=== PATIENT | male | born 1955 | race Caucasian/White ===

== ENCOUNTER 2021-03-09 11:00 | Outpatient (RCR) | payer MEDICARE | END 2021-03-12 | disposition home or self-care (01) | PROVIDERS: ATTEND Internal Medicine | DX: R53.1 Weakness (principal); I10 Essential (primary) hypertension; E11.9 Type 2 diabetes mellitus without complications; R26.89 Other abnormalities of gait and mobility; Z86.73 Personal history of transient ischemic attack (TIA), and cerebral infarction without residual deficits ==

== ENCOUNTER 2021-07-17 09:54 | Outpatient (RCR) | payer MEDICARE | END 2021-07-23 | disposition home or self-care (01) | PROVIDERS: ATTEND Internal Medicine | DX: I69.954 Hemiplegia and hemiparesis following unspecified cerebrovascular disease affecting left non-dominant side (principal); R26.89 Other abnormalities of gait and mobility; E11.36 Type 2 diabetes mellitus with diabetic cataract; E11.39 Type 2 diabetes mellitus with other diabetic ophthalmic complication; E11.621 Type 2 diabetes mellitus with foot ulcer; H42 Glaucoma in diseases classified elsewhere; L97.529 Non-pressure chronic ulcer of other part of left foot with unspecified severity ==

== ENCOUNTER → 2021-08-23 | Outpatient (RCR) | payer MEDICARE | END | disposition home or self-care (01) | PROVIDERS: ATTEND Internal Medicine | DX: I69.954 Hemiplegia and hemiparesis following unspecified cerebrovascular disease affecting left non-dominant side (principal); R53.81 Other malaise; E11.9 Type 2 diabetes mellitus without complications ==

== ENCOUNTER 2021-09-10 08:32 | Outpatient (RCR) | payer MEDICARE | END 2021-09-10 10:14 | disposition home or self-care (01) | PROVIDERS: ATTEND Internal Medicine | DX: I69.954 Hemiplegia and hemiparesis following unspecified cerebrovascular disease affecting left non-dominant side (principal); R53.81 Other malaise; E11.9 Type 2 diabetes mellitus without complications ==

== ENCOUNTER 2022-07-17 05:37 | Outpatient (CLI) | payer MEDICARE ==
[~2022-07-17] VITALS: Ht 167.6 cm; Wt 106.1 kg
== END 2022-07-17 09:55 | disposition home or self-care (01) ==
LOC: PREOP 05:37
PROVIDERS: ATTEND Internal Medicine
DX: Z01.818 Encounter for other preprocedural examination (principal)

== ENCOUNTER 2022-07-26 07:25 | Day surgery (SDC) | payer MEDICARE ==
--- NOTE | 2022-07-16 06:46 | HISTORY AND PHYSICAL ---
COLONOSCOPY HISTORY AND PHYSICAL HISTORY OF PRESENT ILLNESS: The patient is a 67-year-old white male who was seen for followup of uncontrolled type 2 diabetes, previous CVA and hypertension. It has been over 10 years since his last colonoscopy. He is deemed to be of average risk. He is not aware of any family history for colon cancer or polyps. He denies bright red blood per rectum or melena. His blood sugar control had not been good, but with increasing his Levemir from 30 units daily to 30 units b.i.d., he has not had any blood sugars over 200 and he has not had any hypoglycemia. We reviewed his blood work and while his A1c was higher at 10.1, he had only increased his insulin a week ago when his fasting sugar was significantly lower at 136, down from 346. He has not had any new neurologic symptoms and reports no falls. PHYSICAL EXAMINATION: GENERAL: Reveals a white male who appeared to be in no acute distress. VITAL SIGNS: Weight 234 pounds. Blood pressure 150/94 when he first came in and at the end of the interview 134/86. CHEST: Clear. CARDIOVASCULAR: Reveals regular rate and rhythm without murmur, S3, or S4. ABDOMEN: Soft, supple without mass, organomegaly, or tenderness. EXTREMITIES: Revealed no cyanosis, clubbing or edema. ASSESSMENT AND PLAN: 1. Hypertension, under reasonable control. 2. Type 2 diabetes controlled and improving. We will have him return in 3 months with a BMP, A1c, lipid, and screening PSA. 3. Discussed rationale for screening colonoscopy. Prep instructions were given and questions were answered. Job ID: [id number] DocumentID: [id number] Dictated Date: 07/01/2022 16:26:54 Avp Date: 07/01/2022 16:43:00 Dictated By: SELENA LEY MD
[~2022-07-26] VITALS: Ht 167 cm; Wt 106.1 kg
[2022-07-26] MEDS ORDERED: LACTATED RINGERS 1,000 ML IV STA (07:27)
[2022-07-26] MEDS ORDERED: HURRICAINE EXT TUBE (BENZOCAINE) XX PRN (07:30)
[2022-07-26] MEDS ORDERED: ASPI-999 PO (07:35)
[2022-07-26] MEDS ORDERED: COLE1TAB PO (07:35)
[2022-07-26] MEDS ORDERED: LISI20TA26 PO (07:35)
[2022-07-26] MEDS ORDERED: TIRZ2.5P SQ (07:35)
[2022-07-26] MEDS ORDERED: CALC-250 PO (07:35)
[2022-07-26] MEDS ORDERED: OMEP40CA6 PO (07:35)
[2022-07-26] MEDS ORDERED: MULT-593 PO (07:35)
[2022-07-26] MEDS ORDERED: GABA-486 PO (07:35)
[2022-07-26] MEDS ORDERED: ATOR20TA66 PO (07:35)
[2022-07-26] MEDS ORDERED: ESCI-2 PO (07:35)
[2022-07-26] MEDS ORDERED: LEVE10006 PO (07:35)
[2022-07-26 07:49] VITALS: BP 176/86
--- NOTE | 2022-07-26 07:57 | Pre-Op Note & Conscious Sedat ---
Pre-Operative Progress Note Date H&P Reviewed: Jul 26, 2022 Time H&P Reviewed: 07:56 History & Physical: H&P Reviewed, Patient Examed, No changes noted Pre-Op Diagnosis: screening Conscious Sedation Pre-Proced ASA Score 2 For ASA 3 and 4: Consider anesthesia and medical clearance. Also, for patients with a history of failed moderate sedation consider anesthesia. Airway Lungs Heart ASA score ASA 1: a normal healthy patient ASA 2: a patient with a mild systemic disease (mid diabetes, controlled hypertension, obesity ASA 3: a patient with a severe systemic disease that limits activity (angina, COPD, prior Myocardial infarction) ASA 4: a patient with an incapacitating disease that is a constant threat to life (CHF, renal failure) ASA 5: a moribund patient not expected to survive 24 hrs. (ruptured aneurysm) ASA 6: a declared brain- patient whose organs are being harvested. For emergent operations, add the letter E after the classification Mallampati Classification Grade 2 Sedation Plan Analgesia, Amnesia, Plan communicated to team members, Discussed options with patient/fam, Discussed risks with patient/fam The patient is an appropriate candidate to undergo the planned procedure, sedation, and anesthesia. The patient immediately re-assessed prior to indication. SELENA LEY MD Jul 26, 2022 07:57
[2022-07-26] MEDS ORDERED: PROPOFOL INJECTION 50 ML IV ONE (07:58)
[2022-07-26 08:25] VITALS: BP 113/61
--- NOTE | 2022-07-26 08:27 | Progress Note-Post Operative ---
Post-Procedure Note Physician (s)/Change Manager (s) Physician SELENA LEY MD Pre-Procedure Diagnosis Pre-Procedure Diagnosis: screening Post-Procedure Diagnosis Post-operative diagnosis: Prior to undergoing colonoscopy digital rectal evaluation was performed. Anal sphincter tone was normal with perianal reflexes intact. Prostate is mild to moderate enlarged and a nodular on digital inspection. No other abnormalities noted on digital inspection of the anal canal or distal rectal vault. The colonoscope was then inserted into the rectum and under direct visualization advanced to the cecum. The cecum was identified by indication of the ileocecal valve and the cecal strap. Photographic documentation was obtained. A careful inspection was made as the colonoscope was withdrawn. Quality the prep was good. Findings: There were no evidence for internal or external hemorrhoids and the rectum was unremarkable. Present in the distal sigmoid colon 25 cm from anal verge was a sessile 5 mm hyperplastic appearing polyp was photographed and biopsied and ablated with no subsequent blood loss. Several small sigmoid diverticulum were present without evidence of diverticulitis. The descending colon splenic flexure transverse colon hepatic flexure ascending colon and cecum were unremarkable. 1. 1 diminutive hyperplastic appearing polyp was removed via 1. 1 diminutive hyperplastic appearing polyp was removed via from the distal sigmoid colon with no blood loss as noted above. The prostate is mild to moderately enlarged and a nodular on digital inspection. Several small sigmoid diverticulum were present. As long as there are no surprises on histopathology report would advocate consideration for repeat screening in 10 years. SELENA LEY MD Jul 26, 2022 08:27
[2022-07-26 08:30] VITALS: BP 123/67
[2022-07-26 08:35] VITALS: BP 153/78
--- NOTE | 2022-07-26 08:58 | Anesthesia-General Post-Op ---
MAC Patient Condition Mental Status/LOC: Same as Preop Cardiovascular: Satisfactory Nausea/Vomiting: Absent Respiratory: Satisfactory Pain: Controlled Complications: Absent Post Op Complications Complications None Follow Up Care/Instructions Patient Instructions None needed. Anesthesiology Discharge Order Discharge Order Patient is doing well, no complaints, stable vital signs, no apparent adverse anesthesia problems. No complications reported per nursing. ROBLES GOODMAN DO Jul 26, 2022 08:58
[2022-07-26 09:09] VITALS: BP 153/78
== END 2022-07-26 09:09 | disposition home or self-care (01) ==
LOC: ENDO 07:25
PROVIDERS: ATTEND Internal Medicine
DX: Z12.11 Encounter for screening for malignant neoplasm of colon (principal); K63.5 Polyp of colon; K57.30 Diverticulosis of large intestine without perforation or abscess without bleeding; N40.0 Benign prostatic hyperplasia without lower urinary tract symptoms; E11.9 Type 2 diabetes mellitus without complications; I10 Essential (primary) hypertension; E66.9 Obesity, unspecified; Z95.5 Presence of coronary angioplasty implant and graft; Z86.73 Personal history of transient ischemic attack (TIA), and cerebral infarction without residual deficits; Z68.38 Body mass index [BMI] 38.0-38.9, adult; Z79.4 Long term (current) use of insulin; Z79.85 Long-term (current) use of injectable non-insulin antidiabetic drugs; Z79.899 Other long term (current) drug therapy
CPT/HCPCS: 82947